=== PATIENT | male | born 1965 | race Caucasian/White ===

== ENCOUNTER 2024-04-01 07:24 | Day surgery (SDC) | payer OTHER ==
[2024-04-01] MEDS ORDERED: Propofol 200 MG/20 ML SDV IV ONE (07:25)
[2024-04-01] MEDS ORDERED: Lidocaine 2% 100 MG/5 ML Syringe IVPUSH ONE (07:25)
[2024-04-01] MEDS ORDERED: Sodium Chloride 0.9% 10 ML Syringe FLUSH PRN (07:30)
[2024-04-01] MEDS: Simethicone Drops 40 MG/0.6 ML 30 ML Bottle ONE (07:45)
[2024-04-01] MEDS: Lactated Ringers 1,000 ML IV SCH (07:49)
[2024-04-01 10:28] VITALS: BP 120/89; PULSE 58
== END 2024-04-01 09:50 | disposition home or self-care (01) ==
LOC: FB.SDS 07:24
PROVIDERS: ATTEND Surgery
DX: Z12.11 Encounter for screening for malignant neoplasm of colon (principal); D12.2 Benign neoplasm of ascending colon; D12.6 Benign neoplasm of colon, unspecified; K63.5 Polyp of colon; K57.30 Diverticulosis of large intestine without perforation or abscess without bleeding; E78.5 Hyperlipidemia, unspecified; K40.90 Unilateral inguinal hernia, without obstruction or gangrene, not specified as recurrent; F17.210 Nicotine dependence, cigarettes, uncomplicated; Z80.0 Family history of malignant neoplasm of digestive organs; Z79.899 Other long term (current) drug therapy; Z79.82 Long term (current) use of aspirin
CPT/HCPCS: 00811; 45381; 45384; 45385; 88305; A9270; J2704; J7120